=== PATIENT | female | born 1950 | race Caucasian/White ===

== ENCOUNTER 2016-11-14 14:41 | Outpatient (CLI) | payer MEDICARE, MEDICAID | END 2016-11-14 14:42 | disposition home or self-care (01) | DX: E03.9 Hypothyroidism, unspecified (principal) ==

== ENCOUNTER 2016-12-05 15:20 | Outpatient (CLI) | payer MEDICARE, MEDICAID | END 2016-12-05 15:21 | disposition home or self-care (01) | DX: R53.83 Other fatigue (principal); E78.2 Mixed hyperlipidemia; C25.9 Malignant neoplasm of pancreas, unspecified; C24.1 Malignant neoplasm of ampulla of Vater ==

== ENCOUNTER 2016-12-12 14:18 | Outpatient (CLI) | payer MEDICARE, MEDICAID | END 2016-12-12 14:19 | disposition home or self-care (01) | DX: E03.8 Other specified hypothyroidism (principal); E06.3 Autoimmune thyroiditis ==

== ENCOUNTER 2017-01-09 15:26 | Outpatient (CLI) | payer MEDICARE, MEDICAID | END 2017-01-09 15:27 | disposition home or self-care (01) | DX: E03.9 Hypothyroidism, unspecified (principal); Z79.899 Other long term (current) drug therapy; C24.1 Malignant neoplasm of ampulla of Vater; C25.9 Malignant neoplasm of pancreas, unspecified; R10.31 Right lower quadrant pain ==

== ENCOUNTER 2017-01-14 13:44 | Outpatient (CLI) | payer MEDICARE, MEDICAID | END 2017-01-14 13:45 | disposition home or self-care (01) | DX: Z85.07 Personal history of malignant neoplasm of pancreas (principal); Z90.49 Acquired absence of other specified parts of digestive tract; Z98.890 Other specified postprocedural states ==

== ENCOUNTER 2017-02-19 13:44 | Outpatient (CLI) | payer MEDICARE, MEDICAID ==
[2017-02-19 18:33] LABS: BASOPHILS % (AUTO) 0.3 %; EOSINOPHILS % (AUTO) 0.3 %; HCT - HEMATOCRIT 35.2 % (37.0-47.0); HGB - HEMOGLOBIN 11.9 g/dL (12.0-16.0); LYMPHOCYTES # (AUTO) 1.9 10^3/uL (1.5-3.5); LYMPHOCYTES % (AUTO) 22.3 %; MEAN CORPUSCULAR HEMOGLOBIN 28.7 pg (27.0-31.0); MEAN CORPUSCULAR HGB CONC 33.8 g/dL (32.0-36.0); MEAN CORPUSCULAR VOLUME 84.9 fL (81.0-99.0); MEAN PLATELET VOLUME 9.3 fL (7.9-10.8); MONOCYTES # (AUTO) 0.6 10^3/uL (0.0-1.0); MONOCYTES % (AUTO) 7.2 %; NEUTROPHILS % (AUTO) 69.9 %; RED BLOOD COUNT 4.14 10^6/uL (4.20-5.40); RED CELL DISTRIBUTION WIDTH 15.7 % (12.0-15.0); UNCORRECTED WHITE BLOOD COUNT 8.6 x10^3/uL; WHITE BLOOD COUNT 8.6 x10^3/uL (4.8-10.8)
[2017-02-19 18:40] LABS: ALBUMIN/GLOBULIN RATIO 1.4 (1.0-2.2); BILIRUBIN,TOTAL 0.5 mg/dL (0.2-1.0); BUN - BLOOD UREA NITROGEN 12 mg/dL (6-20); CALCIUM 9.3 mg/dL (8.5-10.3); CARBON DIOXIDE - CO2 27 mmol/L (21-32); CHLORIDE 104 mmol/L (101-111); CREATININE 0.6 mg/dL (0.4-1.0); GFR - MDRD 100 (>89); GLUCOSE 70 mg/dL (70-100); SODIUM 138 mmol/L (135-145); TOTAL PROTEIN 7.1 g/dL (6.7-8.2)
[2017-02-19 18:44] LABS: LIPASE 888 U/L (22-51)
== END 2017-02-19 13:45 | disposition home or self-care (01) ==
LOC: LAB.F 13:44
PROVIDERS: ATTEND Physician Assistant Medical
DX: R10.84 Generalized abdominal pain (principal); C24.1 Malignant neoplasm of ampulla of Vater; C25.9 Malignant neoplasm of pancreas, unspecified
CPT/HCPCS: 36415; 80053; 83690; 85025; 85651; 86140

== ENCOUNTER 2017-02-21 14:39 | Outpatient (CLI) | payer MEDICARE, MEDICAID ==
[2017-02-21 18:30] LABS: AMYLASE 66 U/L (28-100); LIPASE 63 U/L (22-51)
== END 2017-02-21 14:40 | disposition home or self-care (01) ==
LOC: LAB.F 14:39
PROVIDERS: ATTEND Physician Assistant Medical
DX: C24.1 Malignant neoplasm of ampulla of Vater (principal); C25.9 Malignant neoplasm of pancreas, unspecified; K85.90 Acute pancreatitis without necrosis or infection, unspecified
CPT/HCPCS: 36415; 82150; 83690; 86301

== ENCOUNTER 2017-02-27 14:04 | Outpatient (CLI) | payer MEDICARE, MEDICAID ==
--- NOTE | 2017-02-28 15:43 | MRI Report ---
EXAM: MR ABDOMEN WITHOUT CONTRAST EXAM DATE: 02/27/2017 03:21 PM. CLINICAL HISTORY: History of pancreatic cancer, status post Whipple procedure. Epigastric pain with i ncreasing lipase. Unable to use contrast. Elevated CA 19-9. COMPARISON: Abdominal MRI 01/14/2017. TECHNIQUE: Multiplanar breath-hold T1, T2, and DWI sequences obtained through the abdomen on an [facility] [place]. No intravenous contrast given. FINDINGS: Lung Bases: Unremarkable. Liver: The liver has normal size, morphology and signal. No evidence of mass or biliary dilatation. P neumobilia noted. Gallbladder: Prior cholecystectomy. Unremarkable choledochojejunostomy. Pancreas: Prior Whipple procedure with pancreatic head resection. Main pancreatic duct measures 5-6 m m in diameter, tapering within the tail to 1 mm diameter. Stable appearance. (Mild main pancreatic du ctal dilatation can persist indefinitely after Whipple procedure.) No pseudocyst. Kidneys and Adrenals: No suspicious renal mass or hydronephrosis. Tiny 4 mm anterior left renal T1 h yperintense cyst containing protein and/or hemorrhage. The adrenals appear normal. Spleen: The spleen appears normal. Bowel: The small bowel and colon appear normal with no inflammation or obstruction. Retroperitoneum: The retroperitoneal structures appear normal with no mass or lymphadenopathy. IMPRESSION: 1. Stable exam. Prior Whipple procedure. 2. No evidence for pancreatitis. 3. No evidence for recurrent or metastatic disease. [facility] Referring Provider Line: [phone] SITE ID: [id number]
== END 2017-02-27 14:05 | disposition home or self-care (01) ==
LOC: DI 14:04
PROVIDERS: ATTEND Physician Assistant Medical
DX: C25.9 Malignant neoplasm of pancreas, unspecified (principal); R10.13 Epigastric pain; R74.8 Abnormal levels of other serum enzymes; R68.89 Other general symptoms and signs
CPT/HCPCS: 74181

== ENCOUNTER 2017-04-30 10:42 | Outpatient (CLI) | payer MEDICARE, MEDICAID ==
[2017-04-30] MEDS ORDERED: GADOBUTROL 7.5 MMOL/7.5 ML VIAL IVP ONE (12:21)
--- NOTE | 2017-04-30 14:58 | MRI Report ---
EXAM: MR ABDOMEN WITH AND WITHOUT CONTRAST MR PELVIS WITH AND WITHOUT CONTRAST EXAM DATE: 04/30/2017 12:22 PM. CLINICAL HISTORY: History of pancreatic cancer. "RMQ" pain for one month. COMPARISON: 02/27/2017. 01/14/2017 TECHNIQUE: Multiplanar breath-hold T1, T2, and DWI sequences obtained through the abdomen and pelvis on an MR scanner. Images obtained before and after administration of 5 mL [address] intravenous contra st. MRCP sequences are also obtained. FINDINGS: Abdomen: Lung Bases: Unremarkable. Liver: The liver has normal size, morphology and signal. No evidence of mass. Bile ducts and gallbladder: The gallbladder is surgically absent and choledochojejunostomy has been p erformed. The extrahepatic bile duct is prominent measuring up to 1 cm in diameter, stable. The centr al right and left bile ducts are also prominent but stable. Pancreas: The pancreatic duct measures up to 0.8 cm in diameter, similar to prior. Previous Whipple p rocedure with pancreatic head and neck resection. No focal pancreatic mass or abnormal enhancement. Spleen: The spleen appears normal. Kidneys and Adrenals: The kidneys appear normal with no mass or hydronephrosis. There are no cysts in the kidneys. The adrenals appear normal. Bowel: The small bowel and colon appear normal with no inflammation or obstruction. The appendix is v isualized and appears normal. Retroperitoneum: The retroperitoneal structures appear normal with no mass or lymphadenopathy. Pelvis: Bladder: Contracted urinary bladder. Reproductive Organs: The visualized reproductive organs appear normal. Other: There is a small volume of ascites in the pelvis and in the perihepatic and perisplenic spaces . IMPRESSION: 1. Stable postsurgical changes from Whipple procedure. 2. Interval development of a small volume of ascites in the abdomen and pelvis. 3. No other findings suggestive of recurrent or residual disease. [facility] Referring Provider Line: [phone] SITE ID: [id number]
== END 2017-04-30 10:43 | disposition home or self-care (01) ==
LOC: DI 10:42
PROVIDERS: ATTEND Physician Assistant Medical
DX: C25.9 Malignant neoplasm of pancreas, unspecified (principal)
CPT/HCPCS: 72197; 74183; A9585

== ENCOUNTER 2017-05-08 14:31 | Outpatient (CLI) | payer MEDICARE, MEDICAID ==
[2017-05-08 19:42] LABS: BASOPHILS % (AUTO) 0.4 %; EOSINOPHILS # (AUTO) 0.1 10^3/uL (0.0-0.7); EOSINOPHILS % (AUTO) 0.6 %; HCT - HEMATOCRIT 37.7 % (37.0-47.0); HGB - HEMOGLOBIN 12.6 g/dL (12.0-16.0); LYMPHOCYTES # (AUTO) 2.1 10^3/uL (1.5-3.5); LYMPHOCYTES % (AUTO) 24.8 %; MEAN CORPUSCULAR HEMOGLOBIN 29.5 pg (27.0-31.0); MEAN CORPUSCULAR HGB CONC 33.4 g/dL (32.0-36.0); MEAN CORPUSCULAR VOLUME 88.3 fL (81.0-99.0); MEAN PLATELET VOLUME 8.8 fL (7.9-10.8); MONOCYTES # (AUTO) 0.5 10^3/uL (0.0-1.0); MONOCYTES % (AUTO) 5.5 %; NEUTROPHILS # (AUTO) 5.9 10^3/uL (1.5-6.6); NEUTROPHILS % (AUTO) 68.7 %; RED BLOOD COUNT 4.27 10^6/uL (4.20-5.40); RED CELL DISTRIBUTION WIDTH 14.4 % (12.0-15.0); UNCORRECTED WHITE BLOOD COUNT 8.6 x10^3/uL; WHITE BLOOD COUNT 8.6 x10^3/uL (4.8-10.8)
[2017-05-08 19:52] LABS: ALBUMIN/GLOBULIN RATIO 1.2 (1.0-2.2); BILIRUBIN,TOTAL 0.3 mg/dL (0.2-1.0); CALCIUM 9.1 mg/dL (8.5-10.3); CREATININE 0.7 mg/dL (0.4-1.0); TOTAL PROTEIN 6.9 g/dL (6.7-8.2)
== END 2017-05-08 14:32 | disposition home or self-care (01) ==
LOC: LAB.F 14:31
PROVIDERS: ATTEND Internal Medicine
DX: C25.9 Malignant neoplasm of pancreas, unspecified (principal)
CPT/HCPCS: 36415; 80053; 83690; 85025

== ENCOUNTER 2017-05-14 14:34 | Emergency (ER) | payer MEDICARE, MEDICAID ==
[2017-05-14] MEDS ORDERED: SODIUM CHLORIDE 0.9% 1,000 ML IV ONE (15:10)
--- NOTE | 2017-05-14 15:13 | ED Physician Documentation ---
PD HPI ABD PAIN - Stated complaint Stated Complaint: ABD PX/NAUSEA - Chief complaint Chief Complaint: Abd Pain - History obtained from History obtained from: Patient, Family - History of Present Illness Timing - onset: How many months ago (several) Timing - duration: Months Timing - details: Gradual onset Pain level max: 6 Pain level now: 4 Quality: Aching, Sharp, Pain Location: Other (R side periumbilical pain) Radiation: Other (non-radiating) Improved by: Other (nothing) Worsened by: Eating, Palpation Associated symptoms: Nausea. No: Fever, Vomiting, Hematemesis, Diarrhea, Constipation, Melena, Hematochezia, Dysuria - Additional information Additional information: Patient is a 66-year-old female with a history of pancreatic cancer that is approximately 1 year status post Whipple procedure. States since that time has had pain in the right side of her abdomen, especially when eating. She states she is also noticed increased gassiness and flatulence. She is taking Creon. She has not had any other recent medication changes. Had a reportedly normal abdominal MRI approximately 2 weeks ago. 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 Patient states that she has had a normal endoscopy and colonoscopy. Review of Systems Ten Systems: 10 systems reviewed and negative Constitutional: denies: Fever, Chills Ears: denies: Ear pain Nose: denies: Rhinorrhea / runny nose, Congestion Throat: denies: Sore throat Cardiac: denies: Chest pain / pressure Respiratory: denies: Cough, Hemoptysis, Wheezing GI: denies: Hematemesis, Bloody / black stool : denies: Dysuria Skin: denies: Rash, Lesions Musculoskeletal: denies: Neck pain, Back pain Neurologic: denies: Headache PD PAST MEDICAL HISTORY - Past Medical History Cardiovascular: High cholesterol Neuro: Headache/migraine Endocrine/Autoimmune: HyPOthyroidism GI: Other : Incontinence Psych: Depression Musculoskeletal: Fibromyalgia, Fatigue, Chronic back pain - Past Surgical History Past Surgical History: Yes General: Cholecystectomy, Appendectomy Ortho: Spine surgery /CIVIL MANAGER: Endometrial ablation, Dilation and currettage HEENT: Other - Present Medications Home Medications: Ambulatory Orders Medication Instructions Recorded Confirmed HYDROmorphone [Dilaudid] 2 mg PO Q4H PRN #15 tablet 10/12/14 07/28/15 Clear Life 2 - 3 tab PRN 07/28/15 07/28/15 Trameel 2 - 3 tab 07/28/15 07/28/15 Dicyclomine [Bentyl] 10 mg PO QID PRN #60 capsule 05/14/17 - Allergies Allergies/Adverse Reactions: Allergies Allergy/AdvReac Type Severity Reaction Status Date / Time codeine Allergy Nausea Verified 05/14/17 14:58 ibuprofen Allergy Unknown Verified 05/14/17 14:58 omeprazole Allergy Dizziness Verified 05/14/17 14:58 Penicillins Allergy Hives Verified 05/14/17 14:58 Sulfa (Sulfonamide Allergy Nausea Verified 05/14/17 14:58 Antibiotics) - Social History Does the pt smoke?: Yes Smoking Status: Current every day smoker Does the pt drink ETOH?: Yes Does the pt have substance abuse?: No - Immunizations Immunizations are current?: Yes - POLST Patient has POLST: No PD ED PE NORMAL - Vitals Vital signs reviewed: Yes - General General: Alert and oriented X 3, No acute distress, Well developed/nourished - HEENT HEENT: PERRL, Moist mucous membranes - Neck Neck: Supple, no meningeal sign - Cardiac Cardiac: RRR, Strong equal pulses - Respiratory Respiratory: No respiratory distress, Clear bilaterally - Abdomen Abdomen: Normal bowel sounds, Soft, Non distended, Other (TTP R periumbilical and L periumbilical without peritonea signs) - Derm Derm: Warm and dry, No rash - Neuro Neuro: Alert and oriented X 3 - Psych Psych: Normal mood, Normal affect Results - Vitals Vitals: Vital Signs - 24 hr 05/14/17 05/14/17 14:42 17:03 Temperature 36.4 C L 36.5 C Heart Rate 83 72 Respiratory 20 18 Rate Blood Pressure 148/62 H 108/59 L O2 Saturation 100 100 Oxygen O2 Source Room air - Labs Labs: Laboratory Tests 05/14/17 05/14/17 05/14/17 14:50 14:50 16:00 WBC 6.9 RBC 4.68 Hgb 13.4 Hct 40.5 MCV 86.7 MCH 28.7 MCHC 33.1 RDW 14.2 Plt Count 255 MPV 8.5 Neut # 4.3 Lymph # 2.0 Cowley # 0.5 Eos # 0.1 Baso # 0.0 Absolute Nucleated RBC 0.00 Nucleated RBCs 0.0 Sodium 137 Potassium 3.7 Chloride 99 L Carbon Dioxide 29 Anion Gap 9.0 BUN 10 Creatinine 0.7 Estimated GFR (MDRD) 84 L Glucose 100 Calcium 9.6 Total Bilirubin 0.6 AST 25 ALT 18 Alkaline Phosphatase 72 Total Protein 8.0 Albumin 4.3 Globulin 3.7 Albumin/Globulin Ratio 1.2 Lipase 14 L Urine Color YELLOW Urine Clarity CLEAR Urine pH 7.5 Ur Specific [place] <=1.005 Urine Protein NEGATIVE Urine Glucose (UA) NEGATIVE Urine Ketones NEGATIVE Urine Occult Blood NEGATIVE Urine Nitrite NEGATIVE Urine Bilirubin NEGATIVE Urine Urobilinogen 0.2 (NORMAL) Ur Leukocyte Esterase NEGATIVE Ur Microscopic Review NOT INDICATED Urine Culture Comments NOT INDICATED PD MEDICAL DECISION MAKING - ED course Complexity details: reviewed results, re-evaluated patient, considered differential, d/w patient, d/w cost consultant (Dr. Marx - [facility]) ED course: Patient is a 66-year-old female who presents to the emergency department with abdominal pain, especially after eating for the past several months. She was given a dose of Bentyl here and this resolved her symptoms. She states she feels much better and is able to eat and drink without difficulty. No evidence of small bowel obstruction clinically. Just had an MRI 2 weeks ago of the abdomen and pelvis which was normal. Discussed the case with her GI physician and will follow up in clinic. Patient counseled regarding signs and symptoms for which I believe and urgent re-evaluation would be necessary. Patient with good understanding of and agreement to plan and is comfortable going home at this time This document was made in part using voice recognition software. While efforts are made to proofread this document, sound alike and grammatical errors may occur. Departure - Departure Disposition: 01 Home, Self Care Clinical Impression: Abdominal pain Qualifiers: Abdominal location: unspecified location Qualified Code(s): R10.9 - Unspecified abdominal pain Condition: Good Instructions: ED Abdominal Pain Unkn Cause Follow-Up: Peg Garcia PA-C [Primary Care Provider] - Within 1 week Prescriptions: Dicyclomine [Bentyl] 10 mg PO QID PRN #60 capsule PRN Reason: Abdominal Pain Comments: Return if you worsen. The bentyl should continue to help your symptoms at home. Discharge Date/Time: 05/14/17 17:20
[2017-05-14 15:16] LABS: BASOPHILS % (AUTO) 0.7 %; EOSINOPHILS # (AUTO) 0.1 10^3/uL (0.0-0.7); EOSINOPHILS % (AUTO) 0.9 %; HCT - HEMATOCRIT 40.5 % (37.0-47.0); HGB - HEMOGLOBIN 13.4 g/dL (12.0-16.0); LYMPHOCYTES % (AUTO) 28.8 %; MEAN CORPUSCULAR HEMOGLOBIN 28.7 pg (27.0-31.0); MEAN CORPUSCULAR HGB CONC 33.1 g/dL (32.0-36.0); MEAN CORPUSCULAR VOLUME 86.7 fL (81.0-99.0); MEAN PLATELET VOLUME 8.5 fL (7.9-10.8); MONOCYTES # (AUTO) 0.5 10^3/uL (0.0-1.0); MONOCYTES % (AUTO) 7.5 %; NEUTROPHILS # (AUTO) 4.3 10^3/uL (1.5-6.6); NEUTROPHILS % (AUTO) 62.1 %; RED BLOOD COUNT 4.68 10^6/uL (4.20-5.40); RED CELL DISTRIBUTION WIDTH 14.2 % (12.0-15.0); UNCORRECTED WHITE BLOOD COUNT 6.9 x10^3/uL; WHITE BLOOD COUNT 6.9 x10^3/uL (4.8-10.8)
[2017-05-14] MEDS: DICYCLOMINE 10 MG CAPSULE PO STA ×2 (15:17→17:15)
[2017-05-14] MEDS ORDERED: DICYCLOMINE 10 MG CAPSULE PO ONE ×2 (15:18→17:17)
[2017-05-14] MEDS: SODIUM CHLORIDE 0.9% 1,000 ML IV ONE (15:19)
[2017-05-14 15:25] LABS: ALBUMIN/GLOBULIN RATIO 1.2 (1.0-2.2); BILIRUBIN,TOTAL 0.6 mg/dL (0.2-1.0); CALCIUM 9.6 mg/dL (8.5-10.3); CREATININE 0.7 mg/dL (0.4-1.0); POTASSIUM 3.7 mmol/L (3.5-5.0)
[2017-05-14 16:07] LABS: BILIRUBIN,URINE NEGATIVE (NEGATIVE); PH,URINE 7.5 PH (5.0-7.5); UA CHARGE (STRIP ONLY) YES; UR CULTURE IF IND NOT INDICATED
[2017-05-14 17:04] VITALS: BP 108/59
== END 2017-05-14 17:20 | disposition home or self-care (01) ==
LOC: ED 14:34
DX: R10.9 Unspecified abdominal pain (principal); F17.200 Nicotine dependence, unspecified, uncomplicated; Z85.07 Personal history of malignant neoplasm of pancreas
CPT/HCPCS: 36415; 80053; 81001; 81003; 83690; 85025; 87086; 99284

== ENCOUNTER 2017-06-04 16:15 | Outpatient (CLI) | payer MEDICARE, MEDICAID ==
--- NOTE | 2017-06-04 22:51 | PROVIDER PROGRESS NOTE ---
Palliative Care Follow Up - Referral Referring Provider: Dr. 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 She was originally diagnosed in November of 2014, after she presented with pancreatitis following a cholecystectomy in October 2014. At that point in time she did decline surgery and radiation, and managed in a fairly regimented natural pathic approach. For which she did actually fairly well, other than fatigue, increasing abdominal pain and weight loss. She is struggling with the decision to move forward, as best she knew, her disease has not progressed and there was a small window of time for surgical intervention for cure. Her struggle included this is a fairly rare cancer, and difficult definitive journey and prognosis. Given that she wasn 't ready to , she did choose to have a Whipple which was performed on 2015 unfortunately she had positive nodes which included followup with chemotherapy. She was only able to complete her 6 rounds because of the side effects. She did have a small window of improvement in health, but over the last several months has had increasing abdominal pain, unable to tolerate oral intake without vomiting and severe pain, and most recently unable to stay hydrated. She has been evaluated both inpatient and outpatient, including endoscopies, MRI of the abdomen, a noncontrast CT at that Abdomen/pelvis. Unfortunately this workup so far has not revealed evidence of obstruction, ulceration, enteritis, cancer recurrence or any definitive diagnosis to be able to address. She most recently was seen in with the [facility] ER 05/14/17, for which he received medication and fluids. She continued to decline and was [place] [facility] [place] [id number]. She has been holding out for her her second opinion, from a GI specialist Dr. Car Jacobs. This visit is not until 06/11/2017. In the meantime she deteriorated you again needing support for her dehydration and was seen at [facility] on 06/01/2017. Today I find her dehydrated again, she has been sipping fluids, including Pedilyte. She is eating rice cereal, but no other solids. I suspect her caloric intake is less than 600. This is with much effort given that she has significant cramping pain, vomiting and dry heaves, and has found little relief from medications. She is currently using ondansetron 2 mg every 4 hours, hycosamine 0.125 mg one to 2 times a day, and most effective has been her marijuana vaping and cannabis oil. She has used methadone 2.5 mg at bedtime intermittently with intolerable pain, she is fearful of addiction. She appears pale, she is dizzy with standing, she fatigues easily with any conversation. Unfortunately, her social situation is such that she is alone, she has some yana hours but this is limited. She does have supportive friends and family home but are not available for primary care giving. She is quite overwhelmed by her current situation, and rightfully so. Social History - Living Situation Living arrangement: At home Living Situation: Alone (has YANA 4 days a week w/4 hours) Support System: Brother coming to visit, has a son but estranged; has very supportive friends but is mostly alone; has her cat Jorge L Medications/Allergies - Medications Home Medications: Ambulatory Orders Medication Instructions Recorded Confirmed Acetaminophen 500 mg PO BID 06/04/17 06/04/17 Cyclobenzaprine [Flexeril] 2.5 mg PO Q8HR PRN 06/04/17 06/04/17 Hycosamine 0.125 mg SL Q4HR PRN 06/04/17 Levothyroxine [Synthroid] 100 mcg PO DAILY 06/04/17 06/04/17 Lipase/Protease/Amylase [Creon Dr 24,000 units PO TID 06/04/17 06/04/17 24,000 Units Capsule] Methadone 2.5 mg PO QPM 06/04/17 06/04/17 Omeprazole [PriLOSEC] 5 mg PO BID 06/04/17 06/04/17 Ondansetron Odt [Zofran Odt] 2 - 4 mg PO Q4HR PRN 06/04/17 06/04/17 Pancretin 1 tab PO TID 06/04/17 Sertraline [Zoloft] 50 mg PO DAILY 06/04/17 06/04/17 Simethicone [Gas Relief] 1 - 2 tab PO BID PRN 06/05/17 06/05/17 - Allergies Allergies/Adverse Reactions: Allergies Allergy/AdvReac Type Severity Reaction Status Date / Time ciprofloxacin Allergy Unknown Verified 06/04/17 23:01 codeine Allergy Nausea Verified 05/14/17 14:58 hydromorphone Allergy Unknown Verified 06/04/17 23:01 ibuprofen Allergy Unknown Verified 05/14/17 14:58 morphine Allergy Unknown Verified 06/04/17 23:01 omeprazole Allergy Dizziness Verified 05/14/17 14:58 oxycodone Allergy Unknown Verified 06/04/17 23:01 Penicillins Allergy Hives Verified 05/14/17 14:58 Sulfa (Sulfonamide Allergy Nausea Verified 05/14/17 14:58 Antibiotics) Review of Systems - Constitutional Constitutional: reports: Fatigue, Malaise, Weakness, Poor appetite, Weight loss (about 100 pounds) - Eyes Eyes: reports: Blurred vision - Ears, Nose & Throat Ears, Nose & Throat: reports: Nasal congestion, Postnasal drainage - Cardiovascular Cariovascular: reports: Lightheadedness, Exertional dyspnea, Decr. exercise tolerance. denies: Chest pain - Respiratory Respiratory: reports: SOB with exertion - Gastrointestinal Gastrointestinal: reports: Abdominal pain, Constipation, Nausea, Vomiting, Bile emesis, Reflux/heartburn, Poor appetite, Other (unable to keep anything down; taking sips of water and pedilyte trying to keep fluids up but gets nauseated easily; taking mostly rice cereal and tea) - Genitourinary Genitourinary: reports: Frequency - Musculoskeletal Musculoskeletal: reports: Muscle pain, Muscle aches, Stiffness, Limited range of motion, Muscle weakness, Other (right arm pain/shoulder neck pain since had EGD/surgery attributes to positioning) - Integumentary Integumentary: reports: Dryness - Neurological Neurological: reports: General weakness, Headache, Dizziness - Psychiatric Psychiatric: reports: Depression, Anxiety - Endocrine Endocrine: reports: Intolerance to cold - All Other Systems All Other Systems: reports: Reviewed and negative Physical Examination - Vital Signs Temperature: 97.6 C Pulse Rate: 86 Respiratory Rate: 18 O2 Saturation: 99 (ra at rest) Blood Pressure: 102/68 - Physical Exam General Appearance: positive: Moderate distress, Cachetic Eyes Bilateral: positive: Other (eyes sunken) ENT: positive: Dry mucous membranes, Other (clear nasal drainage) Neck: positive: No JVD, Trachea midline, Stiff neck Respiratory: positive: No respiratory distress Cardiovascular: positive: Regular rate & rhythm, Other (pulse thin and thready) Abdomen: positive: Tenderness, Abnml bowel sounds Skin: positive: Pallor, Dryness Extremities: positive: No pedal edema, Other (muscle wasting;limited rom on right arm) Neurologic/Psychiatric: positive: Oriented x3, Weakness, Depressed mood/affect Palliative Care - POLST Patient has POLST: Yes POLST Status: DNR, Comfort Measures Pain: Pain worsening, Location Drowsiness: Severe (7-10) (patient reports severe fatigue that has continues to progress) Nausea: Severe (7-10), With vomiting Anxiety: Mild (1-3) Dyspnea: Mild (1-3) Anorexia: Severe (7-10), Weight loss (remains at about 95-100; had gained up to 108 after surgery; muscle wasting and cachetic) Insomnia: Sleeps well Constipation: Yes, Opoid induced, Unmanaged Feelings of wellbeing/Perceived Quality of Life: Worsening Performance Status: Patient unable to tolerate standing for extended periods of time because of dizzyness and weakness, waits until someone at her home before she attempts to bath. Needs to pace self to get food and fluids; spends most of her time in bed. Palliative Care Performance Status [60]. - Palliative Care Discussion: Surrogate decision maker-friend Earlene Arreaga [phone] is overwhelmed with her continued to decline, said upon my arrival "I think I'm dying". She continues to worsen, unable to find any specific etiology for her problems. In the meantime she is unable to sustain her nutritional and fluid intake. Her burden is high with pain, nausea, and severe fatigue. She has multiple medication sensitivities, and does adding to the complexity of the dressing her distress. She has had multiple workups, and now more recently frequent hospitalizations. In the context of her goals, with her current quality of life , she does not feel like life is worth living. She is depressed, but denies suicidality, but feels there is little hope in improving her quality of life. We did spend some time, and out, short and long-term goals. She is hopeful, but the appointment 06/11/2017 and possible relief. Her short-term goal is to avoid rehospitalization, and complete this appointment. In the context of recognizing, or decline, though no specific "terminal diagnosis", she needs to finish up getting her affairs in order. If she indeed is dying, she is hoping to do it on her terms, but discussed the complexity of DWD without documented disease. Given the overwhelming nature of her current situation, he agreed to focus on the short-term goals which include relieving her current distress supporting her to be able to avoid hospitalization, and to follow through on her appointment. Impression and Recommendations - Palliative Care Impression: This is an unfortunate 66-year-old woman with ampullary cancer status post Whipple procedure, now presenting with failure to thrive, malnutrition, and dehydration. She presents with high symptom burden of pain, nausea, and fatigue. Recommendations/Counseling Done: 1. Dehydration attributed to nausea and vomiting, unknown etiology. Consult with her PCP, has a good PA-C, in agreement will make arrangements for hydration Friday and Friday, to be able to meet her goal of avoiding hospitalization and attend her outpatient GI consult. Patient with limited social support, though would most likely benefit in getting the fluids tomorrow will make arrangements for Friday and Friday to accommodate her transportation. 2. Acute on chronic abdominal pain, poorly controlled. Counseling regarding her fears of addiction with methadone, patient has very few ovulates her medication she tolerates, low doses of methadone has worked in the past. She has had trouble weaning off of methadone, we reviewed physical dependence versus addiction. Given her current level of distress, need to be able to better control her symptoms, she was in agreement to initiate methadone 2.5 mg q. evening. She is supplementing this with acetaminophen 500 mg 1-2 times a day. She does get some relief with the hycosamine for her abdominal pain and cramping. She will continue to use her heating pad as well. Patient also describes fairly severe reflex symptoms, some relief with simethicone, is willing to retry omeprazole 10 mg BID, perceives as not helpful in past but recognizes our options are limited. 3. Chronic pain syndrome. Patient has underlying fibromyalgia, IBS, chronic back pain and now right shoulder and arm pain. She does use medical marijuana, small doses of Flexeril, and manages some with positioning. She was due to start physical therapy for her right neck and arm pain, she attributes this to an acute injury with the recent endoscopy. 4. Depression. Patient currently maintained on Zoloft 50 mg, patient expressing appropriate feelings of frustration, anxiety, and distress given her current situation. She has sought out further counseling and support, but has not found a good match. She does fill well supported by her friends and PCP. 5. Advanced care planning. Patient does perceive that she is continuing to deteriorate, though unidentified etiology, she does present with ongoing failure to thrive. Counseling provided and support related to looking at options regarding the continuum of care. Agree currently, to focus on short- term goals, as these will influence end-of-life options in the future. Time Spent: 60 minutes was given 50% of this done in counseling for her mobility to use a support, symptom management, anticipatory guidance and clarification of goals.
== END 2017-06-04 16:16 | disposition home or self-care (01) ==
LOC: PC 16:15
PROVIDERS: ATTEND Nurse Practitioner Adult Health
DX: Z51.5 Encounter for palliative care (principal); E86.0 Dehydration; G89.4 Chronic pain syndrome; R10.9 Unspecified abdominal pain; M79.7 Fibromyalgia; K58.9 Irritable bowel syndrome, unspecified; F32.9 Major depressive disorder, single episode, unspecified; E46 Unspecified protein-calorie malnutrition; R11.2 Nausea with vomiting, unspecified; Z79.891 Long term (current) use of opiate analgesic; Z60.2 Problems related to living alone; Z66 Do not resuscitate; Z85.89 Personal history of malignant neoplasm of other organs and systems
CPT/HCPCS: 99350

== ENCOUNTER 2017-06-09 14:45 | Outpatient (CLI) | payer MEDICARE, MEDICAID ==
--- NOTE | 2017-06-09 20:22 | PROVIDER PROGRESS NOTE ---
Palliative Care Follow Up - Referral Referring Provider: Peg Garcia PA-C Time of Visit: 8740-3136 Referral setting: [facility] [place] Referral Reason: Failure to Thrive - Information Sources History obtained from: Patient Exam limitations: Clinical condition (Patient with some memory challenges; abdominal pain) - History of Present Illness Update Brief HPI Update: Please see previous history from 06/04. This is a 66 shows woman who I am following up with her in the outpatient setting, I had made arrangements for her to receive a liter of fluid. 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 She has had progressive symptoms through the last few months, of abdominal pain, nausea, vomiting, and unable to tolerate oral intake. She has had ongoing evaluation both inpatient and outpatient, and unfortunately has not revealed the etiology, and the workup thus far has not revealed obstruction, ulceration, enteritis, or cancer recurrence. She is continued to present as a failure to thrive. In her most recent hospitalization at [facility], they deferred further workup as she had her upcoming appointment 06/[address] Humberto Jacobs. Her short-term goal, is to hopefully get some answers, as she perceives her quality of life continuing to deteriorate. I have encouraged her, to consider more emergent evaluation, but she feels like it would be more of the same without any definitive outcomes. She did improve for about 24 hours, with a liter of fluid she received on Friday. Was able to continue to sip Pedialyte, but unable to tolerate any solids. Her confounding symptom today, is severe constipation. She did initiate a very small dose of MiraLAX without results. She continues to present with severe abdominal pain 10/10, nausea, and generalized weakness. Social History - Living Situation Living arrangement: At home Living Situation: Alone (Has BRE but 4 days a week/4 hours a day;friends have been providing transportation and support) Medications/Allergies - Medications Home Medications: Ambulatory Orders Medication Instructions Recorded Confirmed Acetaminophen 500 mg PO BID PRN 06/04/17 06/06/17 Cyclobenzaprine [Flexeril] 2.5 mg PO Q8HR PRN 06/04/17 06/06/17 Hycosamine 0.125 mg SL Q4HR PRN 06/04/17 06/06/17 Levothyroxine [Synthroid] 100 mcg PO DAILY 06/04/17 06/06/17 Lipase/Protease/Amylase [Creon Dr 24,000 units PO TID 06/04/17 06/06/17 24,000 Units Capsule] Methadone 2.5 mg PO QPM 06/04/17 06/06/17 Omeprazole [PriLOSEC] 5 mg PO BID 06/04/17 06/06/17 Ondansetron Odt [Zofran Odt] 2 - 4 mg PO Q4HR PRN 06/04/17 06/06/17 Pancretin 1 tab PO TID 06/04/17 06/06/17 Sertraline [Zoloft] 50 mg PO DAILY 06/04/17 06/06/17 Simethicone [Gas Relief] 1 - 2 tab PO BID PRN 06/05/17 06/06/17 Bisacodyl Supp [Dulcolax Supp] 10 mg MD DAILY PRN 06/10/17 06/10/17 Polyethylene Glycol 3350 [Miralax] 8 - 17 gm PO DAILY PRN 06/10/17 06/10/17 - Allergies Allergies/Adverse Reactions: Allergies Allergy/AdvReac Type Severity Reaction Status Date / Time ciprofloxacin Allergy Unknown Verified 06/04/17 23:01 codeine Allergy Nausea Verified 05/14/17 14:58 hydromorphone Allergy Unknown Verified 06/04/17 23:01 ibuprofen Allergy Unknown Verified 05/14/17 14:58 morphine Allergy Unknown Verified 06/04/17 23:01 omeprazole Allergy Dizziness Verified 05/14/17 14:58 oxycodone Allergy Unknown Verified 06/04/17 23:01 Penicillins Allergy Hives Verified 05/14/17 14:58 Sulfa (Sulfonamide Allergy Nausea Verified 05/14/17 14:58 Antibiotics) Review of Systems - Constitutional Constitutional: reports: Fatigue, Weakness, Poor appetite, Weight loss - Eyes Eyes: reports: Other (has sunglasses on related sensitive to lights) - Ears, Nose & Throat Ears, Nose & Throat: reports: Postnasal drainage - Cardiovascular Cariovascular: reports: Lightheadedness, Exertional dyspnea, Decr. exercise tolerance - Respiratory Respiratory: reports: SOB with exertion. denies: Cough - Gastrointestinal Gastrointestinal: reports: Abdominal pain, Constipation (reports severe constipation; with rectal pressure), Nausea, Vomiting, Bile emesis, Reflux/ heartburn, Poor appetite (reports sipping on pedialyte only; unable to eat, though has felt hungary yesterday;) - Genitourinary Genitourinary: reports: Frequency - Musculoskeletal Musculoskeletal: reports: Muscle pain, Muscle aches, Stiffness, Muscle weakness , Other - Integumentary Integumentary: reports: Dryness - Neurological Neurological: reports: General weakness, Headache, Dizziness, Memory problems ( having difficulty tracking things) - Psychiatric Psychiatric: reports: Depression, Anxiety, Other (feels like can't continue with current quality of life; feeling overwhelmed;) - Endocrine Endocrine: reports: Intolerance to cold - Hematologic/Lymphatic Hematologic/Lymphatic: denies: Recurrent infections - All Other Systems All Other Systems: reports: Reviewed and negative Physical Examination - Vital Signs Temperature: 36.6 C Pulse Rate: 74 Respiratory Rate: 18 Blood Pressure: 116/58 - Physical Exam General Appearance: positive: Severe distress, Anxious Eyes Bilateral: negative: No scleral icterus ENT: positive: Dry mucous membranes Neck: positive: Trachea midline Respiratory: positive: No respiratory distress Cardiovascular: positive: Regular rate & rhythm Abdomen: positive: Tenderness, Guarding, Abnml bowel sounds Skin: positive: Pallor, Dryness Extremities: positive: Pedal edema Neurologic/Psychiatric: positive: Oriented x3, Weakness, Depressed mood/affect Palliative Care - POLST Patient has POLST: Yes POLST Status: DNR, Comfort Measures Pain: Pain worsening, Location (abdominal through lower abdomen up into the upper epigastric area; esophageal spasms), Severity (mod to severe; did not take methadone last night; still farily persistent) Drowsiness: Moderate (4-6) (exhausted wtih no energy) Nausea: Severe (7-10) (has been using ondanstetron 2 mg 2 -3 times a day) Anxiety: Severe (7-10) Dyspnea: Mild (1-3) Anorexia: Severe (7-10) Insomnia: Sleeps poorly Constipation: Yes, Opoid induced, Unmanaged Feelings of wellbeing/Perceived Quality of Life: Worsening Performance Status: Palliative Care Performance Status [40].Patient with functional decline, able to ambulate short distances only, related to dizziness and weakness. She does live along so has had to cope, friends have been providing support through the weekend. - Palliative Care Discussion: Surrogate decision maker Radha Arreaga [phone]. Patient remains distraught, by her ongoing situation. She does see her consult with Dr. Jacobs, as a "Hail Hiral", but is hopeful that some answers will come of that. She is confused as to why there's been no laparotomy or further examination from her encounters with the healthcare system. In reviewing the notes, it has all been deferred to this outpatient workup. Patient perceives that she is unable to go on with this level of symptom burden, and perceives herself as dying, but frustrated that she does not know what she's dying of. She has getting fairly exhausted, and more difficulty tracking, concern for her ability to meet her long-term needs.She does not perceive her current quality of life as acceptable, and does not want to live with prolonged suffering. Impression and Recommendations - Palliative Care Impression: This is an unfortunate 66 shows woman with ampullary pancreatic cancer status post Whipple procedure. She now presents with daughter to thrive, malnutrition, it dehydration and high symptom burden. She remains frustrated regarding unable to identify a definitive etiology. Her short-term goal is to make it to her outpatient GI consult. Recommendations/Counseling Done: 1.Dehydration attributed to nausea and vomiting, unknown etiology. She is receiving her second liter of hydration, with the goal to to avoid the goal to avoid acute hospitalization and attend her outpatient GI consult. She did receive benefit, from Friday's infusion. She does recognizes this not a long- term sustainable option. 2. Abdominal pain unknown etiology. Patient's abdomen is tender to palpation most likely exacerbated by her constipation. In counseling with patient reviewed realistic expectations. Most likely will need hospitalization, currently will not be able to identify etiology and less she maximizes and allows appropriate workup. She is hopeful that he will "look" to find an answer including a laparoscopic exam. Reviewed currently with her fragile status, she may need to agree to inpatient support. Given her current level of distress, at this point in time she agrees to follow through and accept recommendations. She had not taken her methadone last night secondary to constipation, instructed she needed to continue her opioids at the minimal level to be able to achieve some relief. 3. Constipation patient has only now initiated MiraLAX of about 50% dosing, instructed to take full 17 g daily. Instructed given her description of rectal pressure to also obtain and use a bisacpdyl suppository tonight. 4. Nausea most likely multifactorial in origin. Patient using intermittent ondansetron 2 mg, given does at visit today. Using combination of omeprazole, simethicone, hycosamine, unclear given patient's increasing short-term memory issues with her feeling poorly but she has been compliant with. 5. Advanced care planning. Patient does present with ongoing failure to thrive, she does perceive herself as continuing to deteriorate, and that this is an unacceptable quality of life. She does have minimal social support which as a layer of complexity to this. Counseling again provided with encouragement to follow through on outpatient workup and recommendations. The patient continues acutely deteriorate encouraged again to access hospitalization. Did agree to send my notes support of her upcoming visit, patient's concern Dr. Jacobs will not understand the severity of her current situation. Time Spent: 30 minutes with greater than 50% spent in counseling regarding symptom management and anticipatory guidance
== END 2017-06-09 14:46 | disposition home or self-care (01) ==
LOC: PC 14:45
PROVIDERS: ATTEND Nurse Practitioner Adult Health
DX: Z51.5 Encounter for palliative care (principal); E86.0 Dehydration; R11.2 Nausea with vomiting, unspecified; R10.819 Abdominal tenderness, unspecified site; K59.03 Drug induced constipation; T40.2X5A Adverse effect of other opioids, initial encounter; R62.7 Adult failure to thrive; Z66 Do not resuscitate; Z85.89 Personal history of malignant neoplasm of other organs and systems; E46 Unspecified protein-calorie malnutrition; Z79.891 Long term (current) use of opiate analgesic; Z60.8 Other problems related to social environment
CPT/HCPCS: 99214

== ENCOUNTER 2017-06-16 08:00 | Outpatient (CLI) | payer MEDICARE, MEDICAID ==
[2017-06-16 17:17] LABS: BASOPHILS % (AUTO) 0.4 %; EOSINOPHILS % (AUTO) 0.2 %; HCT - HEMATOCRIT 37.1 % (37.0-47.0); HGB - HEMOGLOBIN 12.5 g/dL (12.0-16.0); LYMPHOCYTES # (AUTO) 1.4 10^3/uL (1.5-3.5); MEAN CORPUSCULAR HGB CONC 33.8 g/dL (32.0-36.0); MEAN CORPUSCULAR VOLUME 85.7 fL (81.0-99.0); MEAN PLATELET VOLUME 8.5 fL (7.9-10.8); MONOCYTES # (AUTO) 0.4 10^3/uL (0.0-1.0); MONOCYTES % (AUTO) 5.5 %; NEUTROPHILS # (AUTO) 6.2 10^3/uL (1.5-6.6); NEUTROPHILS % (AUTO) 76.9 %; RED BLOOD COUNT 4.33 10^6/uL (4.20-5.40); RED CELL DISTRIBUTION WIDTH 14.3 % (12.0-15.0)
[2017-06-16 17:30] LABS: ALBUMIN/GLOBULIN RATIO 1.2 (1.0-2.2); BILIRUBIN,TOTAL 0.6 mg/dL (0.2-1.0); CALCIUM 8.5 mg/dL (8.5-10.3); CREATININE 0.6 mg/dL (0.4-1.0); MAGNESIUM 1.9 mg/dL (1.7-2.8); PHOSPHORUS 3.1 mg/dL (2.5-4.6); POTASSIUM 3.2 mmol/L (3.5-5.0); TOTAL PROTEIN 5.9 g/dL (6.7-8.2)
== END 2017-06-16 08:01 | disposition home or self-care (01) ==
LOC: LAB 08:00
PROVIDERS: ATTEND Physician Assistant Medical
DX: R62.7 Adult failure to thrive (principal); C25.9 Malignant neoplasm of pancreas, unspecified; C24.1 Malignant neoplasm of ampulla of Vater; Z79.899 Other long term (current) drug therapy
CPT/HCPCS: 36415; 80053; 83735; 84100; 85025

== ENCOUNTER 2017-06-16 13:54 | Day surgery (SDC) | payer MEDICARE, MEDICAID ==
[2017-06-16 15:46] VITALS: BP 127/82
--- NOTE | 2017-06-16 16:04 | XRAY Report ---
FRONTAL CHEST: 06/16/2017 CLINICAL INDICATION: PICC insertion. COMPARISON: 07/31/2015. FINDINGS: Frontal view of the chest demonstrates a normal cardiac silhouette. The lungs are clear. No effusion or pneumothorax is present. A left arm PICC terminates in the expected location of the right ventricle, approximately 13 cm past the cavoatrial junction. IMPRESSION: LEFT ARM PICC TERMINATING IN THE EXPECTED LOCATION OF THE RIGHT VENTRICLE. CRITICAL RESULT: RESULTS CALLED TO MIKHAIL TRINIDAD CRNA, ON 06/16/2017 AT 1550 HOURS. JOB #: [id number] EXT JOB #: [id number] [facility]OSPITALSandhya
--- NOTE | 2017-06-16 16:39 | XRAY Preliminary Report ---
Exam: XR Chest 1 View IMPRESSION: 1. Left-sided PICC terminates near the cavoatrial junction. 2. No acute pulmonary process. [facility] SITE ID: [id number]
--- NOTE | 2017-06-16 16:41 | XRAY Preliminary Report ---
Exam: XR Chest 1 View IMPRESSION: 1. No acute pulmonary process. 2. Malpositioned PICC terminating in the right ventricle. Subsequent image demonstrates normal positi on of the PICC at the cavoatrial junction. [facility] SITE ID: [id number]
--- NOTE | 2017-06-16 17:17 | XRAY Report ---
EXAM: CHEST RADIOGRAPHY EXAM DATE: 06/16/2017 04:20 PM. CLINICAL HISTORY: PICC placement. COMPARISON: 06/16/2017 at 1554 hrs.. TECHNIQUE: 1 view. FINDINGS: Lungs/Pleura: No focal opacities evident. No pleural effusion. No pneumothorax. Mediastinum: Within exam limitations, cardiomediastinal contour is normal. Other: New left-sided PICC terminates near the cavoatrial junction. IMPRESSION: 1. Left-sided PICC terminates near the cavoatrial junction. 2. No acute pulmonary process. [facility] Referring Provider Line: [phone] SITE ID: [id number]
== END 2017-06-16 13:55 | disposition home or self-care (01) ==
LOC: SDS 13:54
PROVIDERS: ATTEND Nurse Anesthetist, Certified Registered
PROC: 05H433Z Insertion of Infusion Device into Left Innominate Vein, Percutaneous Approach (ICD-10-PCS; principal; 2017-06-16 14:00)
DX: Z45.2 Encounter for adjustment and management of vascular access device (principal); Z90.49 Acquired absence of other specified parts of digestive tract; C25.9 Malignant neoplasm of pancreas, unspecified; C24.1 Malignant neoplasm of ampulla of Vater; Z79.899 Other long term (current) drug therapy; R62.7 Adult failure to thrive
CPT/HCPCS: 36415; 71010; 80053; 83735; 84100; 85025